=== PATIENT | male | born 1940 | race Caucasian/White ===

== ENCOUNTER 2017-06-05 06:50 | Emergency (ER) | payer MEDICARE, BC ==
[~2017-06-05] VITALS: Ht 172.7 cm; Wt 68.1 kg
[~2017-06-05 06:50] MED LIST: HYDR-569 PO
[2017-06-05] MEDS ORDERED: oxymetazoline 15 ML nasal spray NS ONE (07:40)
[2017-06-05 09:18] VITALS: BP 188/104
[2017-06-05] MEDS ORDERED: HYDR-565 PO (12:38)
== END 2017-06-05 09:21 | disposition home or self-care (01) ==
LOC: ER 06:51
DX: R04.0 Epistaxis (principal); I10 Essential (primary) hypertension; E78.00 Pure hypercholesterolemia, unspecified; Z88.8 Allergy status to other drugs, medicaments and biological substances
CPT/HCPCS: 30905; 99283; 99284

== ENCOUNTER 2017-06-05 11:31 | Emergency (ER) | payer MEDICARE, BC ==
[~2017-06-05] VITALS: Ht 172.7 cm; Wt 67.4 kg
[2017-06-05 11:41] VITALS: BP 152/110
[2017-06-05] MEDS ORDERED: HYDR-565 PO (12:38)
== END 2017-06-05 12:53 | disposition home or self-care (01) ==
LOC: ER 11:32
DX: R04.0 Epistaxis (principal); E78.00 Pure hypercholesterolemia, unspecified; I10 Essential (primary) hypertension
CPT/HCPCS: 99283

== ENCOUNTER 2017-06-07 06:57 | Emergency (ER) | payer MEDICARE, BC ==
[~2017-06-07] VITALS: Ht 172.7 cm; Wt 67.3 kg
[~2017-06-07 06:57] MED LIST changes: +HYDR-565 PO
[2017-06-07 09:05] VITALS: BP 148/98
== END 2017-06-07 09:07 | disposition home or self-care (01) ==
LOC: ER 06:58
DX: R04.0 Epistaxis (principal); E78.00 Pure hypercholesterolemia, unspecified; I10 Essential (primary) hypertension; Z88.8 Allergy status to other drugs, medicaments and biological substances
CPT/HCPCS: 99281

== ENCOUNTER 2017-09-13 18:30 | Emergency (ER) | payer MEDICARE, BC ==
[~2017-09-13] VITALS: Ht 172.7 cm; Wt 58.0 kg
[~2017-09-13 18:30] MED LIST changes: -HYDR-565 PO
[2017-09-13 18:46] VITALS: BP 134/88
[2017-09-13] MEDS ORDERED: TETanus/Pertussis (Acell)/Diphther VAC/PF (Tdap-Adult) 0.5ml syringe IM ONE (19:50)
[2017-09-13] MEDS ORDERED: bacitracin 15gm ointment TP ONE (19:55)
[2017-09-13] MEDS ORDERED: sulfamethoxazole/trimethoprim DS (800/160mg) tablet PO ONE (20:40)
[2017-09-13] MEDS ORDERED: cephalexin 500mg capsule PO ONE (20:40)
[2017-09-13] MEDS ORDERED: BACDS PO (20:40)
[2017-09-13] MEDS ORDERED: CEPH-572 PO (20:40)
== END 2017-09-13 21:01 | disposition home or self-care (01) ==
LOC: ER 18:31
DX: S60.221A Contusion of right hand, initial encounter (principal); I10 Essential (primary) hypertension; E78.00 Pure hypercholesterolemia, unspecified; Z88.8 Allergy status to other drugs, medicaments and biological substances; W22.8XXA Striking against or struck by other objects, initial encounter; Y93.89 Activity, other specified; Y92.89 Other specified places as the place of occurrence of the external cause; Y99.8 Other external cause status
CPT/HCPCS: 73130; 90471; 90715; 99284